=== PATIENT | female | born 1960 | race African-American/Black ===

== ENCOUNTER 2016-11-16 17:23 | Emergency (ER) | payer BC, OTHER ==
[~2016-11-16] VITALS: Ht 167.6 cm; Wt 104.3 kg
[~2016-11-16 17:23] MED LIST: DIFLUCAN150 MG; FLEXERIL PO; GLUCOPHAGE500 MG; GLUCOTROL10 MG; NAPRELAN500 MG PO; ULTRAM 50MG TAB50 MG PO; VICODIN 5-5001 EACH PO
[2016-11-16 20:18] LABS: URINE BILIRUBIN NEGATIVE (Negative); URINE BLOOD TRACE (Negative); URINE COLOR YELLOW; URINE GLUCOSE-RANDOM* TRACE (Negative); URINE KETONES NEGATIVE (Negative); URINE NITRITE NEGATIVE (Negative); URINE PROTEIN (DIPSTICK) NEGATIVE (Negative); URINE SPECIFIC GRAVITY >= 1.030 (1.003-1.035); URINE UROBILINOGEN 0.2 E.U./dl (0.2-1.0)
[2016-11-16 20:25] LABS: CASTS None Seen /LPF (None Seen); SQUAMOUS 0-3 Few /LPF (0-3)
[2016-11-16 20:26] LABS: BACTERIA 1-9 Few /HPF (None Seen); CALCIUM OXALATE 0-3 Few /LPF (None Seen); URINE RBC 0-2 Rare /HPF (0-2)
[2016-11-16 20:33] LABS: ABSOLUTE NEUTROPHILS 4.9 thou/uL (1.4-8.2); BASOPHILS 0.4 % (0.0-2.0); EOSINOPHILS 2.3 % (0.0-3.0); HEMATOCRIT 39.8 % (37.0-47.0); HEMOGLOBIN 13.3 gm/dL (12.0-15.0); LYMPHOCYTES 31.7 % (24.0-44.0); MCH 27.9 pg (26.0-34.0); MCHC 33.3 g/dL (28.0-37.0); MCV 83.7 fL (80.0-100.0); MONOCYTES 8.4 % (1.0-8.0); PLATELET COUNT 195 thou/uL (150-400); POLYS 57.2 % (36.0-66.0); RBC 4.75 mil/uL (4.20-5.00); RDW 13.5 % (10.5-14.5); WBC 8.5 thou/uL (4.0-11.0)
[2016-11-16 20:37] LABS: MANUAL DIFF NO
[2016-11-16 20:44] LABS: CALCIUM 9.8 mg/dL (8.5-10.1); CREATININE 0.6 mg/dL (0.6-1.3); POTASSIUM 3.9 mmol/L (3.5-5.1)
[2016-11-16 20:48] LABS: ALBUMIN 3.4 g/dL (3.4-5.0); TOTAL BILIRUBIN 0.2 mg/dL (<0.1-1.0); TOTAL PROTEIN 7.3 g/dL (6.4-8.2)
[2016-11-16] MEDS ORDERED: IBUPROFEN 800800 M1 PO (21:21)
[2016-11-16] MEDS ORDERED: MOBIC15 MG PO (21:22)
[2016-11-16] MEDS ORDERED: KEFLEX500 MG PO (21:22)
== END 2016-11-16 21:34 | disposition home or self-care (01) ==
LOC: ER 17:23
PROVIDERS: Physician Assistant
DX: N39.0 Urinary tract infection, site not specified (principal); E11.9 Type 2 diabetes mellitus without complications; I10 Essential (primary) hypertension; Z91.041 Radiographic dye allergy status